=== PATIENT | female | born 1975 | race Two or more races ===

== ENCOUNTER 2020-03-21 09:26 | Emergency (ER) | payer MEDICAID ==
[~2020-03-21] VITALS: Ht 152.4 cm; Wt 68.0 kg
--- NOTE | 2020-03-21 09:50 | NUR ---
pt is in room #1b. dr Greer evaluated the pt.
[2020-03-21] MEDS ORDERED: IV NORMAL SALINE 1000 ML BAG IV ONE (10:00)
[2020-03-21] MEDS ORDERED: PROPOFOL 1,000 MG/100 ML BOTTLE IV ONE (10:00)
[2020-03-21] MEDS ORDERED: PROPOFOL 200 MG/20 ML BOTTLE ONE ×2 (10:02→10:18)
[2020-03-21] MEDS ORDERED: ONDANSETRON 4 MG/2 ML VIAL ONE (10:07)
[2020-03-21] MEDS ORDERED: HYDROMORPHONE 1 MG/1 ML DISP.SYRIN ONE (10:07)
--- NOTE | 2020-03-21 10:10 | NUR ---
Moderate Sedation for closed reduction of left shoulder dislocation. Please see written moderate sedation record. Sergio Arreaga RN, Rubi RN, Durga RT at bedside. All doses of Propofol were prepared and adm with Dr. Greer at bedside.
[2020-03-21] MEDS ORDERED: HYDROMORPHONE 1 MG/1 ML DISP.SYRIN IV ONE (10:15)
[2020-03-21] MEDS ORDERED: ONDANSETRON 4 MG/2 ML VIAL IV ONE (10:15)
--- NOTE | 2020-03-21 10:23 | NUR ---
CLOSED REDUCTION OF LEFT SHOULDER WITH PROCEDURAL SEDATION WAS PERFORMED BY DR MENDES. PT TOLERATED TO PROCEDURE WITHOUT COMPLICATIONS. PT IS FULLY AVAKE NOW , CAN SPEAK IN FULL SENTENCES, AND MOVE ALL FOUR EXTREMITIES WITHOUT LIMITATIONS. GAIT IS STABLE. PT DENIES PAIN.
--- NOTE | 2020-03-21 11:28 | NUR ---
PT WAS D/C'd TO HOME. D/C INSTRUCTIONS GIVEN TO THE PT BY DR MENDES.
[2020-03-21 11:31] VITALS: BP 132/74
== END 2020-03-21 11:32 | disposition home or self-care (01) ==
LOC: ER 09:26
PROC: 0RSKXZZ Reposition Left Shoulder Joint, External Approach (ICD-10-PCS; principal; 2020-03-21)
DX: S43.035A Inferior dislocation of left humerus, initial encounter (principal); W19.XXXA Unspecified fall, initial encounter; Y92.89 Other specified places as the place of occurrence of the external cause
CPT/HCPCS: 23650; 73020; 73030; 96374; 99152; 99285; J1170; J2405; A4663; G0500; J3490; J7030

== ENCOUNTER 2022-03-31 10:17 | Emergency (ER) | payer MEDICAID ==
[~2022-03-31] VITALS: Ht 152.4 cm; Wt 81.6 kg
--- NOTE | 2022-03-31 11:15 | NUR ---
Dr Almazan evaluating the pt.
[2022-03-31] MEDS ORDERED: AMOX875T2 PO (11:25)
[2022-03-31] MEDS ORDERED: OFLO5DRO5 LEFT EAR (11:25)
[2022-03-31] MEDS ORDERED: IBUP-1953 PO (11:25)
[2022-03-31 11:31] VITALS: BP 150/90
--- NOTE | 2022-03-31 11:31 | NUR ---
Patient discharged to home in stable condition. Written and verbal after care instructions given. Patient verbalizes understanding of instructions. Stressed follow up or return to ER for worsening s/s.
== END 2022-03-31 11:35 | disposition home or self-care (01) ==
LOC: ER 10:17
DX: H60.92 Unspecified otitis externa, left ear (principal); H91.93 Unspecified hearing loss, bilateral; H93.19 Tinnitus, unspecified ear; E66.9 Obesity, unspecified; Z68.35 Body mass index [BMI] 35.0-35.9, adult
CPT/HCPCS: A4663

== ENCOUNTER 2024-03-18 15:11 | Emergency (ER) | payer MEDICAID, OTHER ==
[~2024-03-18] VITALS: Ht 152.4 cm; Wt 81.6 kg
[~2024-03-18 15:11] MED LIST: AMOX875T2 PO; IBUP-1953 PO; OFLO5DRO5 LEFT EAR
[2024-03-18] MEDS ORDERED: HYDROCODONE/APAP 5-325MG TABLET ONE (19:02)
[2024-03-18] MEDS: HYDROCODONE/APAP 5-325MG TABLET PO ONE (19:06)
[2024-03-18] MEDS ORDERED: IBUPROFEN 600 MG TABLET ONE (19:53)
[2024-03-18] MEDS: IBUPROFEN 600 MG TABLET PO ONE (19:54)
[2024-03-18] MEDS ORDERED: HYDR-4209 PO (19:55)
[2024-03-18] MEDS ORDERED: IBUP-1490 PO (19:55)
[2024-03-18 20:01] VITALS: BP 141/84; O2SAT 99
[2024-03-19] MEDS ORDERED: HYDR-3980 PO (15:35)
== END 2024-03-18 20:01 | disposition home or self-care (01) ==
LOC: ER 15:12
DX: S83.8X2A Sprain of other specified parts of left knee, initial encounter (principal); M75.31 Calcific tendinitis of right shoulder; M25.511 Pain in right shoulder; E66.9 Obesity, unspecified; Z68.35 Body mass index [BMI] 35.0-35.9, adult; Z79.1 Long term (current) use of non-steroidal anti-inflammatories (NSAID); Z79.891 Long term (current) use of opiate analgesic; Z79.899 Other long term (current) drug therapy; W01.0XXA Fall on same level from slipping, tripping and stumbling without subsequent striking against object, initial encounter; Y93.89 Activity, other specified; Y92.89 Other specified places as the place of occurrence of the external cause; Y99.8 Other external cause status
CPT/HCPCS: 73030; 73060; A4606; A4663